=== PATIENT | male | born 1975 | race Caucasian/White ===

== ENCOUNTER 2017-05-01 18:19 | Emergency (ER) | payer OTHER ==
[2017-05-01 18:28] VITALS: BP 152/94; BMI 21.7
[2017-05-01] MEDS ORDERED: MORPHINE SULFATE INJ 4 MG ONE (18:49)
[2017-05-01] MEDS ORDERED: MORPHINE SULFATE INJ 4 MG IVP ONE (18:49)
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
--- NOTE | 2017-05-01 19:45 | CT ---
CT cervical spine without contrast Indication: Neck pain Comparison: None available Technique: Multiple axial images of the cervical spine were obtained from the skull base to the thor acic inlet without administration of IV contrast. Sagittal and coronal reformats were performed and reviewed. Radiation dose reduction techniques were performed utilizing adjustment for MA/kVP based on patient body size. Findings: Alignment of the cervical spine is maintained. No evidence for acute cortical disruption or subluxa tion can be seen. The posterior elements appear unremarkable. The prevertebral soft tissues are no rmal in their appearance. In addition, the surrounding paraspinous soft tissues are unremarkable. There is moderate multilevel spondylosis at C4-5 and C5-6 with uncovertebral hypertrophy at C5-6 cau sing mild spinal canal stenosis with moderate bilateral neural foraminal narrowing. IMPRESSION: 1. No evidence for traumatic injury of the cervical spine. 2. Degenerative findings as described above. Reported By:
--- NOTE | 2017-05-01 20:37 | CT ---
CT lumbar spine without contrast Indication: Back pain post fall from bed Comparison: None available Technique: Multiple axial images of the lumbar spine were obtained from the upper abdomen to the pel vis without administration of IV contrast. Sagittal and coronal reformats were performed and review ed. Radiation dose reduction techniques were performed utilizing adjustment for MA/kVP based on patient body size. Findings: Alignment of the lumbar spine is maintained. No evidence for acute cortical disruption or subluxati on can be seen. The posterior elements appear unremarkable. The prevertebral soft tissues are norm al in their appearance. In addition, the surrounding paraspinous soft tissues are unremarkable. IMPRESSION: 1. No evidence for traumatic injury of the lumbar spine. Reported By:
== END 2017-05-01 20:56 ==
LOC: ER 18:28
DX: M62.838 Other muscle spasm (principal); M54.2 Cervicalgia
CPT/HCPCS: 72125; 72131; 96365; 96374; 99283; A4222; J2270

== ENCOUNTER → 2017-05-16 | Emergency (ER) | payer SELFPAY ==
[~2017-05-16] MED LIST: HYDROGEN PEROXIDE 3% ONE; VISTARIL PO ONE
[2017-05-16 03:42] VITALS: BP 169/101; BMI 19.0
--- NOTE | 2017-05-16 06:02 | DR.GENAD ---
HPI - Complaint/Symptoms Chief Complaint:: Pt states, "I have bug in my ear. I woke up with these scratches on my legs." - Nurses notes reviewed Nurses Notes Review: Yes - Source History Provided: Patient - Mode of Arrival Mode of Arrival: EMS - Timing Onset of Chief Complaint: 05/16/17 - Duration Duration: Constant - Severity Severity: Severe PMH - PMH Past Medical History: No Past Surgical History: No - Family History History of Family Medical Conditions: No - Social History Does patient currently use any type of tobacco product: No Have you used tobacco products in the last 12 months: No Type of Tobacco Use: None Alcohol Use: None Do you use any recreational Drugs:: Yes (marijuana) Lives With: Alone Lives Where: Home - infectious screening Have you traveled outside the country in the last 6 months?: No Isolation: Standard ROS - Review of Systems Constitutional: No Symptoms Reported Eyes: No Symptoms Reported ENTM: Ear Pain (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 negative: Nose Discharge, Nose Congestion, Throat Pain Respiratoy: No Symptoms Reported Cardiovascular: No Symptoms Reported Gastrointestinal/Abdominal: No Symptoms Reported Genitourinary: No Symptoms Reported Neurological: No Symptoms Reported Musculoskeletal: No Symptoms Reported Integumentary: No Symptoms Reported Hematologic/Lymphatic: No Symptoms Reported Endocrine: No Symptoms Reported All Other Systems: Reviewed and Negative PE - Vital Signs Vitals: Pulse Rate 110 Respiratory Rate 24 Blood Pressure 169/101 O2 Sat by Pulse Oximetry 98 - General Limitations: Other (FIX ON PULLING WARM OUT OF RIGHT EAR.) General Appearance: Alert - Head Head Exam: Normal Inspection - Eyes Eye exam: Normal Appearance - ENT ENT Exam: Other (TM NOT VISUALIZE RT EAR. ). negative: Normal External Ear Exam (PULLING HIS SKIN OUT OF RT INNER EXTERNAL. IT IS BLEEDING.) External Ear Exam: Normal External Inspection Nose Exam: Normal Nose Exam Mouth Exam: Normal Inspection Throat Exam: Normal Inspection - Neck Neck Exam: Trachea Midline - Chest Chest Inspection: Symmetric Chest Wall Rise - Respiratory Respiratory Exam: Normal Lung Sounds Bilat Respiratory Exam: Bilateral Clear to Auscultation - Cardiovascular Cardiovascular Exam: Regular Rate, Normal Rhythm, Normal Heart Sounds - Abdominal Exam Abdominal Exam: Normal Bowel Sounds, Soft. negative: Tenderness - Extremities Extremities Exam: Other (SEVERAL HEAL ABRSIONS ON BOTH LEGS. PATIENT DOES NOT KNOW HOW IT GOT THERE.) - Back Back Exam: Normal Inspection - Neurologic Neurological Exam: Alert, Oriented X3 - Psychiatric Psychiatric Exam: Anxious - Skin Skin Exam: Erythema MDM - Differential Diagnosis Differential Diagnosis: EXTERNAL EAR ABRASION, FOREIGN BODY SENSATION IN RT EXTERNAL EAR. Course - Treatment Treatment: SEE ORDERS. - Education/Counseling Education/Counseling: Patient, Education Educated On: Diagnosis, Needs for Follow Up - Diagnosis Discharge Problem: Abrasion of right ear, Foreign body sensation in right ear canal - Discharge Plan Condition: Stable Prescriptions: Hydrocortisone Crm 1% [HYDROCORTISONE (TOPICAL) CREAM 1% *] 1 applic EXT TID # 30 gm Mupirocin Oint [BACTROBAN OINT 2%] 1 applic EXT BID #22 gm - Follow ups/Referrals Follow ups/Referrals: NFD,None [Primary Care Provider] - 3 days - Instructions Instructions: Ear Foreign Body, [id number], Abrasion, [id number] Additional Instructions: RETURN TO ED IF WORSE. SEE ENT OF CHOICE THIS AM.
== END ==
LOC: ER 03:26
DX: S00.411A Abrasion of right ear, initial encounter (principal); T16.9XXA Foreign body in ear, unspecified ear, initial encounter
CPT/HCPCS: 99282; Q0177